=== PATIENT | male | born 1980 | race Two or more races ===

== ENCOUNTER → 2017-11-18 | Outpatient (CLI) | payer OTHER ==
--- NOTE | 2017-11-18 17:19 | XR ---
EXAMINATION TYPE: XR ribs LT DATE OF EXAM: 11/18/2017 COMPARISON: NONE HISTORY: Rib pain TECHNIQUE: 4 views FINDINGS: There is a healing fracture of the posterior-lateral left seventh rib with bridging callus. Fracture line is still visible. I see no acute fracture. There is no sign of pleural effusion or pne umothorax. The right lung is clear of infiltrate. IMPRESSION: Healing left seventh rib fracture.
== END ==
LOC: RADUSMAIN 16:50
PROVIDERS: ATTEND Emergency Medicine
DX: S22.32XD Fracture of one rib, left side, subsequent encounter for fracture with routine healing (principal)

== ENCOUNTER 2017-11-20 14:56 | Emergency (ER) | payer OTHER ==
[2017-11-20 15:13] VITALS: RESP 16; TEMP 98.3
[2017-11-20 16:51] LABS: Basophils % (A) 1 %; Eosinophils % (A) 1 %; HCT 44.8 % (39.0-53.0); HGB 15.9 gm/dL (13.0-17.5); Lymphocytes # (A) 1.6 k/uL (1.0-4.8); Lymphocytes % (A) 30 %; MCH 29.5 pg (25.0-35.0); MCHC 35.5 g/dL (31.0-37.0); MCV 83.1 fL (80.0-100.0); Mean Platelet Volume 6.7; Monocytes # (A) 0.3 k/uL (0-1.0); Monocytes % (A) 6 %; Neutrophils # (A) 3.3 k/uL (1.3-7.7); Neutrophils % (A) 61 %; Platelet Count 238 k/uL (150-450); RBC 5.38 m/uL (4.30-5.90); WBC 5.4 k/uL (3.8-10.6)
[2017-11-20 17:01] LABS: ALT 140 U/L (21-72); AST 68 U/L (17-59); Albumin 4.8 g/dL (3.5-5.0); Alkaline Phosphatase 84 U/L (38-126); Anion Gap 15 mmol/L; Blood Urea Nitrogen 18 mg/dL (9-20); Calcium 9.6 mg/dL (8.4-10.2); Carbon Dioxide 24 mmol/L (22-30); Chloride 106 mmol/L (98-107); Glucose 83 mg/dL (74-99); Sodium 145 mmol/L (137-145); Total Bilirubin 0.7 mg/dL (0.2-1.3); Total Protein 7.4 g/dL (6.3-8.2)
[2017-11-20 17:05] LABS: D-Dimer 0.21 mg/L FEU (<0.60); INR 1.1 (<1.2); Prothrombin Time 10.5 sec (9.0-12.0)
--- NOTE | 2017-11-20 17:06 | XR ---
EXAMINATION TYPE: XR chest 2V DATE OF EXAM: 11/20/2017 COMPARISON: 10/28/2017 HISTORY: Chest pain TECHNIQUE: Frontal and lateral views of the chest are obtained. FINDINGS: Heart and mediastinum are normal. Lungs are clear. Diaphragm is normal. There are chest le ads. Bony thorax is intact. IMPRESSION: Normal chest. No change.
[2017-11-20 17:07] LABS: Creatine Kinase 426 U/L (55-170)
[2017-11-20 17:19] LABS: Creatine Kinase MB 2.1 ng/mL (0.0-2.4); Troponin I <0.012 ng/mL (0.000-0.034)
[2017-11-20 17:58] VITALS: PULSE 49
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
[2017-11-20 18:51] VITALS: BP 116/66
== END 2017-11-20 19:12 | disposition home or self-care (01) ==
LOC: EC 14:56
DX: R06.02 Shortness of breath (principal); R07.81 Pleurodynia; R06.2 Wheezing; Z87.81 Personal history of (healed) traumatic fracture
CPT/HCPCS: 36415; 71046; 80053; 82550; 82553; 84484; 85025; 85379; 85610; 85730; 93005; 99285